=== PATIENT | male | born 1955 | race African-American/Black ===

== ENCOUNTER 2024-01-29 08:55 | Emergency (ER) | payer MEDICARE, MEDICAID ==
[~2024-01-29] VITALS: Ht 172.7 cm; Wt 72.7 kg
[2024-01-29 09:09] VITALS: BP 124/71; PULSE 84; RESP 18; TEMP 98.2; O2SAT 99
[2024-01-29] MEDS ORDERED: CHLO100T36 PO (09:11)
[2024-01-29] MEDS ORDERED: CHOL100062 PO (09:11)
[2024-01-29] MEDS ORDERED: FOLI-130 PO (09:11)
[2024-01-29] MEDS ORDERED: METO-408 PO (09:11)
[2024-01-29] MEDS ORDERED: INSU100I13 SQ (09:11)
[2024-01-29] MEDS ORDERED: LISI5TAB21 PO (09:11)
[2024-01-29] MEDS ORDERED: FERR-89 PO (09:11)
[2024-01-29] MEDS ORDERED: EZET10TA57 PO (09:11)
[2024-01-29] MEDS ORDERED: GABA-1181 PO (09:11)
[2024-01-29] MEDS ORDERED: TRAZ-257 PO (09:11)
[2024-01-29] MEDS ORDERED: ATOR-2 PO (09:11)
[2024-01-29] MEDS ORDERED: PIOG15TA66 PO (09:11)
[2024-01-29] MEDS ORDERED: ICOS1CAP PO (09:11)
[2024-01-29] MEDS: SULFAMETHOX/TRIMETH DS 800-160 MG/TABLET PO ONE (10:21)
[2024-01-29] MEDS: CEPHALEXIN MONOHYDRATE 500 MG CAPSULE PO ONE (10:21)
[2024-01-29] MEDS ORDERED: CEPH-558 PO (11:11)
[2024-01-29] MEDS ORDERED: SULF-261 PO (11:11)
== END 2024-01-29 11:33 | disposition home or self-care (01) ==
LOC: EMS 08:55
DX: L08.9 Local infection of the skin and subcutaneous tissue, unspecified (principal); E11.9 Type 2 diabetes mellitus without complications; I10 Essential (primary) hypertension; Z79.84 Long term (current) use of oral hypoglycemic drugs; Z79.899 Other long term (current) drug therapy
CPT/HCPCS: 82962; 99283

== ENCOUNTER 2024-07-17 10:52 | Inpatient (IN) | payer MEDICARE, MEDICAID ==
[~2024-07-17] VITALS: Ht 175.3 cm; Wt 70.5 kg
[~2024-07-17 10:52] MED LIST: ATOR-2 PO; CEPH-558 PO; CHLO100T36 PO; CHOL100062 PO; EZET10TA57 PO; FERR-89 PO; FOLI-130 PO; GABA-1181 PO; ICOS1CAP PO; INSU100I13 SQ; LISI5TAB21 PO; METO-408 PO; PIOG15TA66 PO; SULF-261 PO; TRAZ-257 PO
[2024-07-17] MEDS: BACITRACIN 0.9 GM PACKET OINTMENT TP ONE (12:30)
[2024-07-17 13:12] LABS: BASOPHILS % (AUTO) 0.8 % (0.0-2.0); EOSINOPHILS % (AUTO) 2.2 % (1.0-6.0); HEMATOCRIT 38.8 % (41-53); HEMOGLOBIN 12.7 g/dL (13.5-17.5); LYMPHOCYTES # (AUTO) 1.4 K/uL (1.0-4.8); LYMPHOCYTES % (AUTO) 10.3 % (22.0-44.0); MEAN CORPUSCULAR HEMOGLOBIN 28.4 pg (26.0-34.0); MEAN CORPUSCULAR HGB CONC 32.6 G/dL (31.0-37.0); MEAN CORPUSCULAR VOLUME 87 fL (80-100); MONOCYTES # (AUTO) 0.9 K/uL (0.1-1.0); MONOCYTES % (AUTO) 6.7 % (2.0-9.0); NEUTROPHILS # (AUTO) 10.8 K/uL (1.8-7.7); PLATELET COUNT (AUTO) 311 K/uL (150-450); RED BLOOD CELL COUNT(AUTO) 4.46 MIL/uL (4.50-5.90); RED CELL DISTRIBUTION WIDTH 15.1 % (11.5-14.5); WHITE BLOOD COUNT (AUTO) 13.5 K/uL (4.5-11.0)
[2024-07-17] MEDS ORDERED: ACETAMINOPHEN 325 MG TABLET PO PRN (13:15)
[2024-07-17] MEDS ORDERED: DEXTROSE 50%-WATER 25 GM/50 ML SYRINGE IVP PRN (13:15)
[2024-07-17 13:19] LABS: ANION GAP 9 mmol/L (8-16); CARBON DIOXIDE 28 mmol/L (22-29); CHLORIDE 104 mmol/L (98-107); GLOMERULAR FILTR. RATE CALC > 60 mL/min (>60); GLUCOSE,RANDOM 196 mg/dL (70-110); POTASSIUM 3.6 mmol/L (3.5-5.1); SODIUM SERUM 141 mmol/L (136-145); UREA NITROGEN, BLOOD 29 mg/dL (7-18)
[2024-07-17 13:50] LABS: ALCOHOL, BLOOD (SERUM) < 3 mg/dL (0-10)
[2024-07-17] MEDS: SODIUM CHLORIDE 0.9% 1,000 ML IV ONE (14:55)
[2024-07-17] MEDS: HEPARIN SODIUM,PORCINE 5,000 UNITS/ML VIAL SQ SCH (15:53)
[2024-07-17] MEDS: DOCUSATE SODIUM 100 MG CAPSULE PO SCH (21:00)
[2024-07-17 21:07] LABS: COVID AG,FIA SOURCE NASAL SWAB
[2024-07-17 21:23] VITALS: BP 132/73; PULSE 109; RESP 18; TEMP 98.2; O2SAT 97
[2024-07-17 21:24] LABS: SARS-COV2 (COVID) ANTIGEN,FIA Negative (Negative)
[2024-07-17] MEDS: INSULIN LISPRO 100 UNITS/ML SQ PRN (21:47)
[2024-07-18 06:15] VITALS: PULSE 94; RESP 18; TEMP 97.9; O2SAT 96
[2024-07-18 07:09] VITALS: BP 109/56; PULSE 95; RESP 19; TEMP 95.4; O2SAT 99
[2024-07-18] MEDS ORDERED: LORazepam 2 MG/ML VIAL IVP PRN (10:15)
[2024-07-18] MEDS: MULTIVITAMINS WITH MINERALS, THERAPEUTIC TABLET PO SCH (10:45)
[2024-07-18] MEDS: FAMOTIDINE 20 MG TABLET PO SCH (10:45)
[2024-07-18 11:35] LABS: GLUCOMETER DEV NAME(LOC) 6S.1D; GLUCOSE,POINT OF CARE 160 MG/DL (70-110)
[2024-07-18 16:05] VITALS: BP_SYST 114; BP_SYST 137; BP_DIAS 59; BP_DIAS 76; PULSE 55; PULSE 95; RESP 19; RESP 20; TEMP 97.5; TEMP 98.1; O2SAT 98; O2SAT 99
[2024-07-18 20:26] LABS: GLUCOMETER DEV NAME(LOC) 6N.2B; GLUCOSE,POINT OF CARE 138 MG/DL (70-110)
[2024-07-18 21:00] VITALS: BP 120/58; PULSE 104; RESP 18; TEMP 97.9; O2SAT 98
[2024-07-18 23:30] LABS: GLUCOMETER DEV NAME(LOC) 6S.2; GLUCOSE,POINT OF CARE 177 MG/DL (70-110)
[2024-07-18 23:30] LABS: GLUCOMETER DEV NAME(LOC) 6S.2; GLUCOSE,POINT OF CARE 105 MG/DL (70-110)
[2024-07-19 05:00] VITALS: BP 124/76; PULSE 99; RESP 18; TEMP 97.5; O2SAT 99
[2024-07-19 07:05] LABS: GLUCOMETER DEV NAME(LOC) 6S.2; GLUCOSE,POINT OF CARE 135 MG/DL (70-110)
[2024-07-19] MEDS: ETHYL ALCOHOL 62% ANTISEPTIC NASAL SANITIZER 0.6 ML AMPUL NASAL SCH (09:00)
[2024-07-19] MEDS ORDERED: DOCU-385 PO (10:12)
[2024-07-19] MEDS ORDERED: INSU100V SQ (10:12)
[2024-07-19] MEDS ORDERED: ACET-2247 PO (10:12)
[2024-07-19] MEDS ORDERED: HEPA500018 SQ (10:12)
[2024-07-19] MEDS ORDERED: MULT-1303 PO (10:12)
[2024-07-19] MEDS ORDERED: FAMO20 PO (10:12)
== END 2024-07-19 20:13 | DRG 885 ==
LOC: EMS 10:53 → EDH 13:04 → 6S 21:15
PROVIDERS: ADMIT Internal Medicine; ATTEND Internal Medicine
DX: F20.9 Schizophrenia, unspecified (principal); E43 Unspecified severe protein-calorie malnutrition; R64 Cachexia; S31.000A Unspecified open wound of lower back and pelvis without penetration into retroperitoneum, initial encounter; I10 Essential (primary) hypertension; Z20.822 Contact with and (suspected) exposure to COVID-19; S91.301A Unspecified open wound, right foot, initial encounter; X58.XXXA Exposure to other specified factors, initial encounter; E11.51 Type 2 diabetes mellitus with diabetic peripheral angiopathy without gangrene; Y93.89 Activity, other specified; Y92.89 Other specified places as the place of occurrence of the external cause; Y99.8 Other external cause status; Z79.4 Long term (current) use of insulin; Z89.512 Acquired absence of left leg below knee; Z68.22 Body mass index [BMI] 22.0-22.9, adult
CPT/HCPCS: 80048; 82962; 85025; 87081; 92610; 96365; 96372; 99285; G0480; J1644

== ENCOUNTER 2025-01-27 10:14 | Emergency (ER) | payer MEDICARE, MEDICAID ==
[~2025-01-27] VITALS: Ht 177.8 cm; Wt 68.2 kg
[~2025-01-27 10:14] MED LIST changes: -ATOR-2 PO; +CEFT1VIA65 IV; -CEPH-558 PO; -CHLO100T36 PO; +FAMO20 PO; -FERR-89 PO; -INSU100I13 SQ; +INSU100I47 SQ; +INSU3INS3 SQ; +LACO10SO12 PO; -LISI5TAB21 PO; -METO-408 PO; +PHEN50TA13 PO; -PIOG15TA66 PO; +QUET25TA PO; +RISP2TAB45 PO; -SULF-261 PO
[2025-01-27 10:56] LABS: CALCIUM, TOTAL 8.3 mg/dL (8.8-10.5); CREATININE 0.87 mg/dL (0.60-1.30); GLOMERULAR FILTR. RATE CALC > 60 mL/min (>60); GLUCOSE,RANDOM 173 mg/dL (70-110); SODIUM SERUM 132 mmol/L (136-145); UREA NITROGEN, BLOOD 21 mg/dL (7-18)
[2025-01-27 10:57] LABS: PLATELET COUNT (AUTO) 239 K/uL (150-450); RED BLOOD CELL COUNT(AUTO) 3.82 MIL/uL (4.50-5.90); RED CELL DISTRIBUTION WIDTH 13.6 % (11.5-14.5); WHITE BLOOD COUNT (AUTO) 6.0 K/uL (4.5-11.0)
[2025-01-27 11:40] VITALS: TEMP 98.8
[2025-01-27 12:33] LABS: APPEARANCE,URINE CLEAR (CLEAR); GLUCOSE, URINE (UA) NEGATIVE (NEGATIVE); LEUKOCYTE ESTERASE ,URINE NEGATIVE (NEGATIVE); NITRATE,URINE NEGATIVE (NEGATIVE); OCCULT BLOOD,URINE NEGATIVE (NEGATIVE); PH,URINE DRUG SCREEN 7.0 (5.0-8.0); SPECIFIC GRAVITIY, URINE 1.010 (1.003-1.030)
[2025-01-27 12:40] LABS: ALCOHOL, URINE DRUG SCREEN NEGATIVE (NEGATIVE); AMPHET/METH SCREEN,URINE NEGATIVE (NEGATIVE); BARBITURATE SCREEN, URINE NEGATIVE (NEGATIVE); CANNABINOID SCREEN,URINE NEGATIVE (NEGATIVE); COCAINE SCREEN,URINE NEGATIVE (NEGATIVE); METHADONE SCREEN, URINE NEGATIVE (NEGATIVE)
[2025-01-27 13:30] VITALS: BP 139/63; PULSE 84; RESP 17; O2SAT 98
== END 2025-01-27 13:45 | disposition home or self-care (01) ==
LOC: EMS 10:14
DX: Z00.8 Encounter for other general examination (principal); E11.9 Type 2 diabetes mellitus without complications; F20.9 Schizophrenia, unspecified; I10 Essential (primary) hypertension; Z89.512 Acquired absence of left leg below knee; Z79.899 Other long term (current) drug therapy
CPT/HCPCS: 99283; 80048; 85025; 36415; 80307; 81003; G0480